=== PATIENT | female | born 1995 | race Caucasian/White ===

== ENCOUNTER 2020-08-20 10:07 | Emergency (ER) | payer MEDICAID ==
[~2020-08-20] VITALS: Ht 165.1 cm; Wt 55.0 kg
[2020-08-20 10:13] VITALS: BP 132/87
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
[2020-08-20 13:29] LABS: URINE HCG NEGATIVE (NEG)
== END 2020-08-20 13:51 | disposition home or self-care (01) ==
LOC: ER 10:08
DX: S06.0X0A Concussion without loss of consciousness, initial encounter (principal); V89.2XXA Person injured in unspecified motor-vehicle accident, traffic, initial encounter; Y93.89 Activity, other specified; Y92.89 Other specified places as the place of occurrence of the external cause; Y99.8 Other external cause status
CPT/HCPCS: 70450; 81025; 99284